=== PATIENT | female | born 1985 | race Caucasian/White ===

== ENCOUNTER 2024-10-12 09:42 | Emergency (ER) | payer OTHER, SELFPAY ==
--- NOTE | ~2024-10-12 | CT_ITS ---
EXAMINATION: CT HEAD WITHOUT CONTRAST CLINICAL INFORMATION: tinnitus, left eye pain and tinge to vision COMPARISON: None available. TECHNIQUE: Contiguous axial imaging was performed from the skull base to vertex without intravenous administration of contrast. This CT examination was performed using dose optimization techniques as appropriate, variously including the following: *Automated exposure control *Adjustment of mA and/or kV according to patient size (this includes techniques or standardized protocols for targeted exams where dose is matched to indication/reason for exam; i.e. extremities or head) *Use of iterative reconstruction technique DLP: 680 mGy-cm FINDINGS: No acute intracranial hemorrhage, mass effect, midline shift, hydrocephalus or herniation. Olson-white matter differentiation is normal. Posterior cranial fossa contents demonstrated no gross mass effect or hemorrhage. Sellar/suprasellar region demonstrated the CSF prominence suggesting diaphragmatic sella insufficiency. Craniocervical junction is intact and normal. No masses or hematomas in the intraconal or extraconal compartments of the orbits The eyeballs are intact and normal. The extraocular muscles are normal in morphology. Polypoid mucosal thickening, maxillary sinuses venous sinus and mucosal thickening ethmoid air cells. Tympanic cavities and mastoid air cells are aerated. CT/CT head/brain wo IV con IMPRESSION: No acute intracranial hemorrhage or acute brain abnormality by CT. Polypoid paranasal sinus disease. Electronically signed by: Nasim Verduzco MD 10/12/2024 01:59 PM EDT
[2024-10-12 09:55] VITALS: BP 161/110; PULSE 95; RESP 19; TEMP 36.6; O2SAT 98; BMI 36.0
--- NOTE | 2024-10-12 10:02 | PC.NURSE ---
case discussed Nichelle Pedersen and basic labs recommended and no stroke protocol
[2024-10-12 10:38] LABS: MANUAL DIFF FLAG NO
[2024-10-12 10:40] LABS: Basophils Absolute Auto 0.1 X10*3/uL (0.0-0.2); Basophils Percent Auto 0.7 % (0-2); Eosinophils Absolute Auto 0.2 X10*3/uL (0.0-0.4); Eosinophils Percent Auto 2.9 % (0-4); Hematocrit 42.1 % (37.0-47.0); Hemoglobin 14.4 g/dl (12.0-16.0); Imm Gran Abs Auto 0.02 X10*3/uL (0.00-0.03); Imm Gran Pct Auto 0.3 % (0.0-0.4); Lymphocytes Absolute Auto 2.5 X10*3/uL (1.2-4.9); Lymphocytes Percent Auto 35.8 % (20-40); Mean Corpuscular HGB Conc 34.2 g/dl (31.0-35.0); Mean Corpuscular Hemoglobin 32.7 pg (27.0-33.0); Mean Corpuscular Volume 95.7 fL (80.0-98.0); Mean Platelet Volume 9.3 fL (9.4-12.3); Monocytes Absolute Auto 0.6 X10*3/uL (0.1-1.2); Monocytes Percent Auto 9.1 % (2-11); Neutrophils Absolute Auto 3.6 x10*3/uL (2.0-8.3); Neutrophils Percent Auto 51.2 % (45-73); Platelet Count 283 X10*3/uL (160-400); Red Cell Distribution Width 12.4 % (11.0-16.0)
[2024-10-12 10:58] LABS: Anion Gap 14 (12-20); Blood Urea Nitrogen 12 mg/dL (9-16); Carbon Dioxide 22 mmol/L (22-29); Chloride 108 mmol/L (96-108); Estimated Glomerular Filt Rate > 60; Glucose Random 93 mg/dL (60-115); Potassium 4.3 mmol/L (3.3-5.1); Sodium 140 mmol/L (135-145)
[2024-10-12 11:40] LABS: HCG Quantitative < 2 mIU/mL
--- NOTE | 2024-10-12 13:25 | ED.EYEPROB ---
HPI - Eye Problem General Chief complaint: Eye Problems Stated complaint: eye issues ringing in l ear Time Seen by Provider: 10/12/24 13:02 Source: patient Mode of arrival: ambulatory Limitations: no limitations History of Present Illness HPI Narrative: 39 year old female presents emergency department with multiple complaints. She states she has had recurrent tinge to her left eye after looking at her fundi before she was the bed. She states that similar thing happened last night and that she had ringing in her left ear and pain behind her left eye. She denies any history of headaches or migraine she has not taken anything for the pain and states she was unable to sleep all last night he came in if you for evaluation she denies any allergies states she does not take any medications in his otherwise healthy. chief complaint: eye pain and vision change Related Data Allergies Allergy/AdvReac Type Severity Reaction Status Date / Time No Known Allergies Allergy Verified 10/12/24 09:58 Review of Systems Review of Systems: Review of systems: General: Patient denies any fever chills recent illness or falls Musculoskeletal: Denies back pain or body aches or other injuries HEENT: ringing to left ear headache, denies runny nose, ear pain Respiratory: denies shortness of breath, cough Cardiovascular: no chest pain or palpitations : denies dysuria, frequency Abdomen: no nausea vomiting denies abdominal pain Extremities: no swelling, no pain Skin: no diaphoresis Yes all other systems are reviewed and are negative [facility] Social History Social History Advance Directives: No Advance Directives Information Provided: Yes Do you have a plan to hurt others: No Plan Physical Exam Vital Signs: Vital Signs: Last Vital Signs Temp 98 F 10/12/24 09:55 Pulse 95 10/12/24 09:55 Resp 19 10/12/24 09:55 BP 161/110 H 10/12/24 09:55 Pulse Ox 98 10/12/24 09:55 O2 Del Method Room Air 10/12/24 09:55 BMI result Body Mass Index 36.0 Neurological exam: CN II- XII tested. Patient is alert and oriented to person place and time. Patient has no dysphagia or dysarthia, denies good vision in all four vision beaver no nystagmus on exam, good strength to upper and lower extremities with normal reflexes to brachioradialis, wrist, patella and achilles. Negative romberg, good finger to nose and heel to esposito. General: Well-appearing well-nourished in no signs of distress HEENT: Normocephalic atraumatic Neck: No signs of JVD, no masses no tenderness or lymphadenopathy Cardiovascular: Regular rate and rhythm Respiratory: Clear to auscultation bilaterally Abdomen: Soft nontender no masses Extremities: Normal pedal pulses no signs of edema Skin: Dry warm no rashes Back: No tenderness full ROM Course Course Course Narrative: Patient is feeling much better reading is much better still has some pain. Patient is happy with the plan to go home CT is negative labs are all unremarkable she is happy with the plan to go home at this time. Medications Administered Generic Name Dose Route Start Last Admin Trade Name Freq PRN Reason Stop Dose Admin Sodium Chloride 1,000 mls @ 999 mls/hr 10/12/24 13:30 10/12/24 14:06 Ns IV 10/12/24 14:30 999 mls/hr .[id number] MAURICE Administration Discontinued Medications Generic Name Dose Route Start Last Admin Trade Name Freq PRN Reason Stop Dose Admin Acetaminophen 650 mg 10/12/24 13:24 10/12/24 14:06 Acetaminophen 325 Mg Tablet PO 10/12/24 13:25 650 mg ONCE ONE Administration Diphenhydramine HCl 25 mg 10/12/24 13:24 10/12/24 14:10 Diphenhydramine Hcl 50 Mg/Ml Vial IVPUSH 10/12/24 13:25 25 mg ONCE ONE Administration Ketorolac Tromethamine 15 mg 10/12/24 13:24 10/12/24 14:08 Ketorolac Tromethamine 15 Mg/Ml Vial IVPUSH 10/12/24 13:25 15 mg ONCE ONE Administration Metoclopramide HCl 10 mg 10/12/24 13:24 10/12/24 14:11 Metoclopramide Hcl 10 Mg/2 Ml Vial IVPUSH 10/12/24 13:25 10 mg ONCE ONE Administration Medical Decision Making Medical Decision Making MDM Narrative: Patient denies any recent infection or any other cause that could lead to her ear complaints she does not have any signs of any distress with normal vitals she has not even tried [id number] medications like Tylenol or ibuprofen for this and this has been a recurrent problem symptoms never lasted this long this sounds more like an ocular migraine I will give the patient Toradol Tylenol Reglan and Benadryl. I will send the patient over for a CT scan to make sure there is no mass that could cause both these symptoms but this is not sound like a stroke her neuro exam is otherwise unremarkable Differential Diagnosis Differential Diagnoses: The differential diagnosis associated with the presentation includes Headache dehydration electrolyte abnormality reading the ear tinnitus Admission/Observation Consideration of admission/observation: Escalation of care including admission/observation considered Consult Healthcare Provider Management of the patient was discussed with: Hospitalist Lab Data [facility] Lab Attestation statement: I reviewed the patient's lab results. 10/12/24 10:34 10/12/24 10:34 Labs: Lab Results 10/12/24 Range/Units 10:34 WBC 7.0 (4.8-10.8) X10*3/uL RBC 4.40 (4.20-5.50) X10*6/uL Hgb 14.4 (12.0-16.0) g/dl Hct 42.1 (37.0-47.0) % MCV 95.7 (80.0-98.0) fL MCH 32.7 (27.0-33.0) pg MCHC 34.2 (31.0-35.0) g/dl RDW 12.4 (11.0-16.0) % Plt Count 283 (160-400) X10*3/uL MPV 9.3 L (9.4-12.3) fL Immature Gran % (Auto) 0.3 (0.0-0.4) % Neut % (Auto) 51.2 (45-73) % Lymph % (Auto) 35.8 (20-40) % [place] % (Auto) 9.1 (2-11) % Eos % (Auto) 2.9 (0-4) % Baso % (Auto) 0.7 (0-2) % Lymph # (Auto) 2.5 (1.2-4.9) X10*3/uL [place] # (Auto) 0.6 (0.1-1.2) X10*3/uL Eos # (Auto) 0.2 (0.0-0.4) X10*3/uL Baso # (Auto) 0.1 (0.0-0.2) X10*3/uL Abs Immat Gran (auto) 0.02 (0.00-0.03) X10*3/uL Absolute Neuts (auto) 3.6 (2.0-8.3) x10*3/uL Absolute Nucleated RBC 0.000 (0.0-0.012) X10*3/uL Nucleated RBC % (auto) 0.0 (0.0-0.2) /100WBC Sodium 140 (135-145) mmol/L Potassium 4.3 (3.3-5.1) mmol/L Chloride 108 (96-108) mmol/L Carbon Dioxide 22 (22-29) mmol/L Anion Gap 14 (12-20) BUN 12 (9-16) mg/dL Creatinine 0.81 (0.5-1.4) mg/dL Estim Creat Clear Calc 117.0 Estimated GFR > 60 Random Glucose 93 (60-115) mg/dL Calcium 10.0 (8.4-10.2) mg/dL Beta HCG, Quant < 2 mIU/mL Independent Interpretation I performed an independent interpretation of an: EKG and CT Scan Radiology Impression Discussion of test interpretation with radiology: I have reviewed the radiologist's reading. External Record Review External record reviewed: Inpatient record Discharge Plan Discharge Clinical Impression: Headache, Tinnitus, Vision defect, color Patient Disposition: Home, Self-Care Instructions: Acute Headache (DC), Tinnitus (ED) Additional Instructions: You were seen today in the emergency department for change your left eye vision. You were also seen for ringing ears and headache behind her eye. You underwent a CT scan as well as blood work which were all unremarkable. You were given Reglan Toradol and Benadryl. If you have any other concerns please call follow up with her doctor Referrals: Deandre Almaraz [Physician] - (You seen today in the emergency department for left eye vision change. Please call follow up with a specialist.) [place] Chu [Physician] - (Please call follow up for the ringing in your ears. ) Stand Alone Forms: Work/School Release Print Language: Surinamese
[2024-10-12] MEDS: Acetaminophen 325 MG TABLET 650 MG PO (14:06)
[2024-10-12] MEDS: 0.9 % Sodium Chloride 1,000 ML 999 ML IV (14:06)
[2024-10-12] MEDS: Ketorolac Tromethamine 15 MG/ML VIAL IVPUSH (14:08)
[2024-10-12] MEDS: diphenhydrAMINE HCL 50 MG/ML VIAL 25 MG IVPUSH (14:10)
[2024-10-12] MEDS: Metoclopramide HCl 10 MG/2 ML VIAL IVPUSH (14:11)
[2024-10-12 15:34] VITALS: BP 161/110; PULSE 95; RESP 19; TEMP 36.6; O2SAT 98
== END 2024-10-12 15:34 | disposition home or self-care (01) ==
PROVIDERS: Physician Assistant Medical; Emergency Provider Student in an Organized Health Care Education/Training Program
DX: R51.9 Headache, unspecified (principal); H57.12 Ocular pain, left eye; H93.12 Tinnitus, left ear; H54.7 Unspecified visual loss
CPT/HCPCS: 36415; 70450; 80048; 84702; 85025; 96374; 96375; 99283; J1200; J1885; J2765

== ENCOUNTER → 2024-10-12 13:24 | Outpatient (BNV) | payer OTHER, SELFPAY | PROVIDERS: Emergency Provider Student in an Organized Health Care Education/Training Program; Visit Provider Radiology Diagnostic Radiology | DX: J33.8 Other polyp of sinus (principal) | CPT/HCPCS: 70450 ==

== ENCOUNTER 2025-04-14 10:55 | Outpatient (AMB) | payer OTHER, SELFPAY ==
--- NOTE | 2025-04-14 11:02 | MHC.PC.OV ---
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 Allergies No Known Allergies Allergy (Verified 04/14/25 11:05) Medication List - Last Reviewed 04/14/25 by Patsy Angeles CMA bupropion HCl XL mg PO DAILY clobetasol 0.05% topical dextroamphetamine-amphetamine 10 mg PO dextroamphetamine-amphetamine 10 mg ER PO QAM dextroamphetamine-amphetamine 30 mg ER PO DAILY fluoxetine mg PO DAILY lorazepam mg PO PRN propranolol mg PO 3XD PRN Tobacco use date assessed: 04/14/25 Dental Screening Dental Screen Date: 04/14/25 Did you have a dental visit in the last 12 months?: Yes Did you have a dental problem in the last 6 months where you did not have access to dental care?: No Was dental information given to patient?: Patient has dentist HPI HPI Comments History of Present Illness Details 39 y/o F with ADHD, PRINCESS, Obesity, HTN, Family hx of CAD, chronic back pain, hx of R ankle sprains and 5th metatarsal fracture, scalp psoriasis, Ct scan 10/2024 diaphragmatic sella insufficiency s/p L5-S1 fusion, s/p lasix eye surgery Social: to [place] [facility]: Dad 69 hx of cardiac stenting/[place]; Paternal Grandparents age 65 of [place]. Mom alive and well. 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 - Obesity with weight loss efforts ongoing, including dietary amendments and exercise resulting in an 8-pound loss in six weeks. Interested in bariatric referral. Placed today - Family history of severe heart disease with the father, paternal grandparents & pAUnt (29) succumbing to cardiac conditions. Offered and declined Cards referral at this time. Will check labs. - HTN uncontrolled; took a med for short time from the ED; stopped taking. Active w/ Optho. Exam 10/2024. Reports retinal issue in R eye. - Palpable left leg mass noted over the past few months,started after travel to [place], has gotten bigger. Has not had this looked at. - Chronic back pain persists post L5-S1 fusion; decreased activity levels attributed to previous weight gain. recurrent sprain R ankle. Would like PT for this. - Managing depressive, anxiety, and ADHD symptoms with prescribed psychiatric medications; managed by outside provider. - Scalp psoriasis - has rx for clobetasol but does not use often. 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 no longer having headaches. Review of Systems - Constitutional: Reports recent weight loss of 8 pounds in past six weeks. - Cardiovascular: Reports no ongoing chest pain but expresses concern about family history of heart disease. - Respiratory: Denies any respiratory symptoms. - Gastrointestinal: Denies any significant GI symptoms. - Musculoskeletal: Reports chronic back pain and past ankle injuries. Reports a new mass in the left leg. - Integumentary: Reports scalp dermatitis with spreading symptoms. - Neurological: Denies current headaches, past temporal headaches reported. - Psychiatric: Reports ongoing treatment for depression, anxiety, ADHD, and performance anxiety. - Others: Denies any new or acute symptoms outside those detailed. Physical Exam General: Well developed, well nourished, in no acute distress. Appears stated age. Head: Normocephalic, atraumatic. Scalp psoriasis noted Eyes: Pupils are equal, round and reactive to light and accommodation. Conjunctivae are clear. Lungs: Clear to auscultation bilaterally. No rales, rhonchi or wheeze noted. Good air flow in all beaver. Heart: Regular rate and rhythm. No murmurs, click, rubs or gallops are noted. Musculoskeletal: Joints are nontender, without swelling, redness, or effusions. Pulses: Peripheral pulses are equal and palpable bilaterally. Extremities: No clubbing, cyanosis nor edema is noted. Palpable cord like area noted to posterior L calf. Mildly tender to touch, not red. Psych: Mood and affect appropriate. Diagnostic results Pending Results Pending Discussion Notes I discussed various health concerns with the patient, emphasizing the importance of managing obesity through sustained dietary and physical activity improvements. Given the significant family history of cardiovascular disease, we talked about the utility of cardiology referral and genetic markers to better assess her risk. I highlighted the importance of managing her psychiatric conditions with current medications, confirming her treatment compliance. I encouraged the patient to initiate the dermatology management plan involving clobetasol and fluocinolone oil, providing clarity on application strategies for optimal results. Agreement on prioritizing an ultrasound for the left leg to assess the area found and excluded possible thrombosis. Arranged for physical therapy referrals to reevaluate and manage her chronic back pain and left ankle instability. Set expectations for regular follow-ups for hypertension management to prevent possible renal complications. Addressed the need for ongoing eye care to monitor potential retinal changes given the high blood pressure history. I also outlined important anticipatory guidance for future woman?s health screenings and continued execution of her mental health strategy. Patient was given time to ask questions. All questions were answered to their satisfaction. Assessment and Plan 1. Obesity - Weight management plan initiated. - Dietary and exercise guidance provided. [facility] bariatric referral 2. Hypertension - Clonidine 0.1mg for hypertension initiated. We will titrate to effect - Monitor blood pressure at home.Bring cuff to callobrate at next visit 3. Scalp psoriasis - Fluocinolone oil at night, clobetasol foam during day. - Regular use stressed for control. consider derm referral PRN 4. Family Cardiac Risk - Consider future cardiology referral. - Focus on cardiac risk from family history. 5. Left Leg Mass - Immediate ultrasound scheduled DVT R/o - Assess for thrombosis. 6. Chronic Back Pain - Physical therapy for core stability. - Mobility improvement focus. 7. Depression/Anxiety - Continue psychotropic medications. - Monitor with current psychiatric provider. 8. Ankle Instability, R - Physical therapy for ankle stability. 9. Genetic Cardiac Risk - Potential marker evaluations discussed. Patient Instructions - Follow the weight management plan for dietary adjustments and exercise habits. - Monitor blood pressure daily; keep a record for next visit. - Apply scalp treatment as directed; regular usage is critical. - Attend scheduled ultrasound for leg mass. - Engage in physical therapy as soon as scheduled. - Adhere to current psychiatric medication routine. - Return for scheduled follow-up in four weeks. Consent Patient was informed and verbally consented to the use of an ambient scribe for clinic note documentation during this visit. Total time spent caring for the patient today was 60 minutes. This includes time spent before the visit reviewing the chart, time spent during the visit, and time spent after the visit on documentation, reviewing laboratory results, diagnostic imaging, medications, performing a medically necessary evaluation, counseling on diagnoses, care coordination, ordering appropriate tests, ordering appropriate medications, review of tests performed by other providers, reporting test results with the patient, communication with other healthcare providers. [facility] Surgical History (Updated 04/14/25 @ 11:28 by Patsy Angeles CMA) History of back surgery Family History (Updated 04/14/25 @ 11:28 by Patsy Angeles CMA) Father HTN (hypertension) High cholesterol Cardiovascular disease Prostate cancer Paternal Grandmother HTN (hypertension) High cholesterol Cardiovascular disease Paternal Grandfather HTN (hypertension) High cholesterol Cardiovascular disease Other FH: mental illness History of back surgery Substance abuse Social History Housing: House Alcohol intake: never Patient Tobacco Use Status: Former Tobacco user Years Smoked: once as a teenager e-Cigarette/Vaping Use: Never Used Second Hand Smoke Exposure: Yes service: No Current occupational status: employed 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 1. Little interest or pleasure in doing things: not at all 2. Feeling down, depressed, or hopeless: not at all 3. Trouble falling or staying asleep, or sleeping too much: several days 4. Feeling tired or having little energy: several days 5. Poor appetite or overeating: several days 6. Feeling bad about yourself - or that you are a failure or have let yourself or your family down: not at all 7. Trouble concentrating on things, such as reading the newspaper or watching television: several days 8. Moving or speaking so slowly that other people could have noticed. Or the opposite - being so fidgety or restless that you have been moving around a lot more than usual: not at all 9. Thoughts that you would be better off or of hurting yourself in some way: not at all Total score: 4 Depression Screening Interpretation: Negative Depression Screening Done: Yes 60790 - PHQ-9 Billing: Yes Source: Developed by Drs. Kyaw Bowser, Rain Emmanuel, Ralph Simon and colleagues, with an educational cuco from [employer]. Thrive Questionnaire Date Thrive assessed: 04/07/25 I am a: Patient What is your living situation today?: I have a steady place to live Within the past 12 months, did the food you bought not last and you didn't have the money to get more?: Never true Within the past 12 months, did you worry whether your food would run out before you got money to buy more?: Never true Do you have trouble paying for medicines?: No Do you have trouble getting transportation to medical appointments?: No Do you have trouble paying your heating and electricity bill?: No Do you have trouble taking care of your child, family member or friend?: No Do you have trouble with day-to-day activities such as bathing, preparing meals, shopping, managing finances, etc.?: No Are you currently unemployed and looking for a job?: No Are you interested in more education?: Yes Please select the resources that you would like help with: None Currently or been in a relationship where the following occur: No concerns reported THRIVE Score: 0 AUDIT C Alcohol Use Questionnaire (AUDIT-C) 1. How often do you have a drink containing alcohol?: 2-3 times a week 2. How many drinks containing alcohol do you have on a typical day when you are drinking?: 1 or 2 3. How often do you have six or more drinks on one occasion?: Less than monthly Total Score: 4 Score Reviewed/Action Taken: Yes PRINCESS-7 AMB Questionnaire PRINCESS-7 Date PRINCESS - 7 assessed: 04/14/25 Feeling nervous, anxious, or on edge: 3 = Nearly every day Not being able to stop or control worryin = More than half the days Worrying too much about different things: 2 = More than half the days Trouble relaxin = More than half the days Being so restless that it is hard to sit still: 1 = Several days Becoming easily annoyed or irritable: 0 = Not at all Feeling afraid as if something awful might happen: 1 = Several days Total PRINCESS-7 score (0-4 normal; 5-9 mild; 10-14 moderate; 15-21 severe): 11 Source: Developed by Drs. Kyaw Bowser, Ralph Morales and colleagues, with an educational cuco from [employer]. RPINCESS-7 Assessment Billing PRINCESS-7 Assessment Tool: PRINCESS-7 Assessment 77570 Physical exam (Primary Care) Vital Signs: Last Vital Signs Temp 98.2 F 04/14/25 11:06 Pulse 82 04/14/25 11:06 Resp 14 04/14/25 11:06 BP 178/113 H 04/14/25 11:06 Pulse Ox 99 04/14/25 11:06 Oxygen Delivery Method Room Air 04/14/25 11:06 BMI result Body Mass Index 40.6 BMI Assessment/Plan discussion: High BMI High, discussed plan: lifestyle Tobacco/Smoking Status: Tobacco use Status Tobacco use date assessed 04/14/25 04/14/25 11:08 Patient Tobacco Use Status Former Tobacco user 04/14/25 11:08 e-Cigarette/Vaping Use Never Used 04/14/25 11:08 PHQ-9: PHQ-9 Score PHQ-9: Total score 4 04/14/25 11:08 Depression Screening Interpretation: Negative Thrive Assessment: Date of Thrive Assessment Date Thrive assessed 04/07/25 04/14/25 11:08 Currently or been in a relationship where the following occur: No concerns reported Coding Level of Care Code New Pt Level 5 (50662) Complex EM visit Add On G2211 Diagnoses Encounter to establish care Z76.89 PRINCESS (generalized anxiety disorder) F41.1 Attention deficit hyperactivity disorder (ADHD), predominantly inattentive type F90.0 Attention deficit-hyperactivity disorder type: predominantly inattentive BMI 40.0-44.9, adult Z68.41 Chronic bilateral low back pain without sciatica M54.50; G89.29 Back pain laterality: bilateral Sciatica presence: without sciatica Family history of early CAD Z82.49 Primary hypertension I10 Hypertension type: primary hypertension Localized swelling, mass and lump, left lower limb R22.42 Scalp psoriasis L40.9 Cervical cancer screening Z12.4 Additional Codes PHQ-9 - 81472 - PHQ-9 Billing: Yes ([id number]) PRINCESS-7 Assessment Billing - PRINCESS-7 Assessment Tool: PRINCESS-7 Assessment 21597 ([id number]) Assessment & Plan Assessment & Plan (1) Encounter to establish care: Code(s): Z76.89 - Persons encountering health services in other specified circumstances (2) PRINCESS (generalized anxiety disorder): Code(s): F41.1 - Generalized anxiety disorder Category: Medical (3) ADHD: Code(s): F90.9 - Attention-deficit hyperactivity disorder, unspecified type Category: Medical Qualifiers: Attention deficit-hyperactivity disorder type: predominantly inattentive Qualified Code(s): F90.0 - Attention-deficit hyperactivity disorder, predominantly inattentive type (4) BMI 40.0-44.9, adult: Code(s): Z68.41 - Body mass index [BMI] 40.0-44.9, adult Category: Medical (5) Chronic low back pain: Code(s): M54.50 - Low back pain, unspecified; G89.29 - Other chronic pain Category: Medical Qualifiers: Back pain laterality: bilateral Sciatica presence: without sciatica Qualified Code(s): M54.50 - Low back pain, unspecified; G89.29 - Other chronic pain (6) Family history of early CAD: Comment: dad's side Code(s): Z82.49 - Family history of ischemic heart disease and other diseases of the circulatory system Category: Medical (7) HTN (hypertension): Code(s): I10 - Essential (primary) hypertension Category: Medical Qualifiers: Hypertension type: primary hypertension Qualified Code(s): I10 - Essential (primary) hypertension (8) Localized swelling, mass and lump, left lower limb: Code(s): R22.42 - Localized swelling, mass and lump, left lower limb Category: Medical (9) Scalp psoriasis: Code(s): L40.9 - Psoriasis, unspecified Category: Medical (10) Cervical cancer screening: Code(s): Z12.4 - Encounter for screening for malignant neoplasm of cervix Category: Medical Plan . Orders: Orders Hemoglobin A1c Today I10 - Essential (primary) hypertension Microalbumin, Random (w Creat) Today I10 - Essential (primary) hypertension Vitamin D 25-OH Total Today I10 - Essential (primary) hypertension PT Evaluation and Treatment Today G89.29 - Other chronic pain, M54.50 - Low back pain, unspecified, S93.401A - Sprain of unspecified ligament of right ankle, initial encounter Apolipoprotein A1 Today Z82.49 - Family history of ischemic heart disease and other diseases of the circulatory system Apolipoprotein B Today Z82.49 - Family history of ischemic heart disease and other diseases of the circulatory system CRP High Sensitivity Today Z82.49 - Family history of ischemic heart disease and other diseases of the circulatory system Complete Blood Count no Diff Today I10 - Essential (primary) hypertension Comprehensive Met. Panel Today I10 - Essential (primary) hypertension Lipid Panel Today I10 - Essential (primary) hypertension TSH reflex Free T4 Today I10 - Essential (primary) hypertension Vitamin B12 and Folate Today I10 - Essential (primary) hypertension US venous duplex LE LT Today R22.42 - Localized swelling, mass and lump, left lower limb Referrals ANALYTICS ARCHITECT Referral Z12.4 - Encounter for screening for malignant neoplasm of cervix Ophthalmology Referral I10 - Essential (primary) hypertension Medical Weight Management Referral Z68.41 - Body mass index [BMI] 40.0-44.9, adult Medications: New fluocinolone and shower cap 0.01 % apply a thin film onto wet scalp and massage in, cover with shower cap, leave in overnight or a minimum of 4 hours before washing off with shampoo 1 appl topical BEDTIME 118.28 mL 4RF clobetasol 0.05% 1 g topical DAILY 100 grams 8RF clonidine HCl 0.1 mg PO BEDTIME 30 tabs 1RF Discontinued guanfacine Discontinued Reason: Patient no longer taking PO DAILY Patient Instructions: Walk-In Care (Urgent Care): We Make it Easy Walk-in for urgent medical issues such as: ? Seasonal Allergies ? Insect Bites ? Cough ? Diarrhea ? Acute Asthma Attacks ? Back, Knee or Joint Pain ? Ear Infection ? Fever without a Rash ? Headaches ? Nausea ? [place] [facility], Rash or Skin Irritation ? Sore Throat ? Sports Physicals ? Vomiting Most insurances are accepted. Patients do not need to be part of the [facility] to seek care at the walk-in clinic. Locations [facility] , [place] [address] ? [phone] [facility] Walk-In Care in [place] provides services to ages 18 and over. Open Saturday-Saturday: 7 a.m. to 5 p.m. and Saturday: 9 a.m. to 3 p.m.* *Hours may vary due to staffing availability. To confirm Walk-In Care hours in [place], please call [phone]. [address] [place] [address], [place] [address] ? [phone] [facility]In [facility] in [place] provides services to ages 12 and over. Open Saturday-Saturday: 8 a.m. to 5 p.m. Hours may vary due to staffing availability. To confirm Walk-In Care hours in [place], please call [phone]. LABORATORY SERVICES: [facility] Lab ? Primary Location [address] [place] [address] Saturday through Saturday 6:00 AM ? 5:00 PM Saturday 7:00 AM ? 11:00 AM* [phone] The [facility] Lab is centrally located near the front entrance of the [facility] for easy outpatient access. Convenient parking is provided for outpatients. *Hours may vary due to staffing availability. To confirm Laboratory hours for any location, please call [phone]. Offsite Location For your convenience, we offer offsite laboratory draw stations at the following locations: [address] [place] [address] ? [address], [address] Saturday through Saturday 7:30 AM ? 1:00 PM* [phone] *Hours may vary due to staffing availability. To confirm Laboratory hours for any location, please call [phone]. [place] ? [address] Saturday through Saturday 6:00 AM ? 3:30 PM* Saturday 6:30 AM ? 3 PM* [phone] *Hours may vary due to staffing availability. To confirm Laboratory hours for any location, please call [phone] [place] [address] Saturday through Saturday 7:30 AM ? 4:00 PM* [phone] *Hours may vary due to staffing availability. To confirm Laboratory hours for any location, please call [phone] [place] [address] Saturday through 9:00 AM ? 4:00 PM* *Hours may vary due to staffing availability. To confirm Laboratory hours for any location, please call [phone]. Appointments are not necessary. Walk-ins are welcome. Like all the departments throughout the [facility], our Lab undergoes frequent reviews to ensure the quality and accuracy of test results, and our staff takes special pride in its status as a nationally accredited facility. Patient Portal: [facility] ONE PATIENT. ONE RECORD. BETTER CARE. [facility] has a fully integrated, cutting-edge mobile electronic health information system that has revolutionized the way we care for our patients and manage our organization. This system improves communication and coordination enabling us to provide safe, higher-quality care, and an overall positive experience for staff and patients. Our first priority, as always, is to deliver the highest quality care possible. The system is running in the background supporting that priority. This portal is for all [facility] services and practices. If you are experiencing any technical difficulties with enrolling or logging into the Patient Portal please complete the [facility] Patient Portal Technical Support Form. [facility] now offers a new secure on-line interactive tool for patients to review their health information ? ?Patient Portal. This interactive web portal will enable patients and their families to take an active role in their care by providing easy, secure access to their health information via the internet. The Patient Portal provides patients with instant access to their health information, including laboratory results, medications, allergies, demographic information, visit history, and more. In addition to managing their own care, parents and health care proxies with authorized consent will appreciate the ability to access the records of those individuals for whom they provide care. Please note: if you wish to gain access (Proxy) to another patient?s portal, you will be required to come to the Medical Records Department in person at [facility]. Both the patient giving proxy access and the proxy will need to provide photo identification and complete the appropriate authorization. The Patient Portal also allows track their appointments online. The [facility] Patient Portal also saves patients time by allowing them to submit updates to their demographic and contact information prior to their visits. Portal email notifications will also alert patients to any new activity on their portal, such as test results and new appointments. In order to initially enroll in the [facility] Patient Portal, you will need to enter some required information including the following: your [facility] Medical Record number your personal home email address name date of Please note: In order to enroll in the [facility] Patient Portal, we need to have your email address on file in your electronic medical record. ?The email address needs to be specific for one person (yourself) in order for your Portal enrollment to be successful. ?You can update your email address in person with our Registration staff when you are registering for a hospital visit. ?Otherwise, you will need to come to the Health Information Management (Medical Records) Department at [facility]. ?We are open from Saturday ? Saturday from 7:30 a.m. ? 4:30 p.m. ?You will be required to present a photo id. Once you have successfully enrolled in the Patient Portal, you will receive a one-time user id and password for the Portal, sent to your email address. ?This will allow you to log into the Patient Portal within 99 hrs and reset your own logon id and password, and define personal security questions. ?Once your permanent login and password have been set, you can log into the [facility] Patient Portal at any time via the blue button above or from the Portal Logon button on any page of the [facility] website. [facility] and [facility] encourage all of our patients to enroll in Patient Portal as it presents a valuable opportunity for patients and their families to actively participate in their care and stay healthy Welcome to [facility]. ?We look forward to working with you.
[2025-04-14 11:06] VITALS: BP 178/113; PULSE 82; RESP 14; TEMP 36.8; O2SAT 99; BMI 40.6
== END 2025-04-14 11:49 | disposition home or self-care (01) ==
LOC: HO.HMCFM 10:56
PROVIDERS: PCP Nurse Practitioner Family; Visit Provider Nurse Practitioner Family
DX: Z76.89 Persons encountering health services in other specified circumstances (principal); F41.1 Generalized anxiety disorder; F90.0 Attention-deficit hyperactivity disorder, predominantly inattentive type; Z68.41 Body mass index [BMI] 40.0-44.9, adult; M54.50 Low back pain, unspecified; G89.29 Other chronic pain; Z82.49 Family history of ischemic heart disease and other diseases of the circulatory system; I10 Essential (primary) hypertension; R22.42 Localized swelling, mass and lump, left lower limb; L40.9 Psoriasis, unspecified; Z12.4 Encounter for screening for malignant neoplasm of cervix

== ENCOUNTER 2025-04-14 10:55 | Outpatient (REF) | payer OTHER, SELFPAY ==
[2025-04-14 14:37] LABS: Hematocrit 42.3 % (37.0-47.0); Hemoglobin 13.9 g/dl (12.0-16.0); Mean Corpuscular HGB Conc 32.9 g/dl (31.0-35.0); Mean Corpuscular Hemoglobin 31.7 pg (27.0-33.0); Mean Corpuscular Volume 96.4 fL (80.0-98.0); NRBC Abs Auto 0.000 X10*3/uL (0.0-0.012); NRBC Pct Auto 0.0 /100WBC (0.0-0.2); Platelet Count 315 X10*3/uL (160-400); Red Blood Count 4.39 X10*6/uL (4.20-5.50); White Blood Count 5.6 X10*3/uL (4.8-10.8)
[2025-04-14 15:06] LABS: Total Hemoglobin (HGBA1C) 3683.8672 umol/L
[2025-04-14 15:19] LABS: Alanine Aminotransferase 38 U/L (0-31); Albumin Level 4.8 g/dL (3.5-5.0); Alkaline Phosphatase 70 U/L (39-117); Anion Gap 13 (12-20); Aspartate Amino Transferase 39 U/L (5-31); Blood Urea Nitrogen 15 mg/dL (9-16); Calcium 9.6 mg/dL (8.4-10.2); Carbon Dioxide 25 mmol/L (22-29); Chloride 102 mmol/L (96-108); Cholesterol 198 mg/dL (<200); Estimated Glomerular Filt Rate > 60; HDL Cholesterol 45 mg/dL (>40); Potassium 4.1 mmol/L (3.3-5.1); Sodium 136 mmol/L (135-145); Total Protein 7.3 g/dL (6.5-8.0); Triglycerides 286 mg/dL (<150)
[2025-04-14 15:31] LABS: Microalbum/Creatinine Ratio Ur 7.3 ug/mg cr (<30)
[2025-04-14 15:41] LABS: Folate 7.0 ng/mL (> or = 4.0); Vitamin B12 380 pg/mL (200-900)
== END 2025-04-14 10:56 | disposition home or self-care (01) ==
LOC: HO.WFDLDS 10:55
PROVIDERS: PCP Nurse Practitioner Family; Visit Provider Nurse Practitioner Family
DX: Z76.89 Persons encountering health services in other specified circumstances (principal); Z12.4 Encounter for screening for malignant neoplasm of cervix; M54.50 Low back pain, unspecified; L40.9 Psoriasis, unspecified; R22.42 Localized swelling, mass and lump, left lower limb; I10 Essential (primary) hypertension; F41.1 Generalized anxiety disorder; F90.0 Attention-deficit hyperactivity disorder, predominantly inattentive type; G89.29 Other chronic pain; Z82.49 Family history of ischemic heart disease and other diseases of the circulatory system
CPT/HCPCS: 36415; 80053; 80061; 82043; 82172; 82306; 82570; 82607; 82746; 83036; 84443; 85027; 86141; 96127

== ENCOUNTER 2025-04-14 13:21 | Outpatient (REF) | payer OTHER, SELFPAY ==
--- NOTE | ~2025-04-14 | US_ITS ---
EXAMINATION: US TRIPLEX LOWER EXTREMITY, LEFT CLINICAL INFORMATION: Pain. Lump, left lower extremity COMPARISON: None available. TECHNIQUE: Color-flow triplex imaging with spectral analysis and compression Doppler were performed on the left lower extremity. FINDINGS: Respiratory variation, normal compression and augmented flow are demonstrated in the interrogated left common femoral vein, superficial femoral vein, profunda femoral vein, popliteal vein and midcalf peroneal and posterior tibial venous segments.. There is no Webster's cyst. There is a 9 mm ovoid shaped hypoechoic solid lesion beneath the spleen in the mid calf region without flow on color Doppler interrogation US/US venous duplex LE LT IMPRESSION: No acute deep venous thrombosis interrogated veins, left lower extremity. Negative for DVT. 9 mm ovoid shaped solid lesion in the soft tissues of the mid calf.. Electronically signed by: Nasim Verduzco MD 04/14/2025 02:56 PM EDT
== END 2025-04-14 13:22 | disposition home or self-care (01) ==
LOC: HO.US 13:21
PROVIDERS: Visit Provider Nurse Practitioner Family
DX: R22.42 Localized swelling, mass and lump, left lower limb (principal)
CPT/HCPCS: 93971

== ENCOUNTER → 2025-04-14 13:22 | Outpatient (BNV) | payer OTHER, SELFPAY | PROVIDERS: Visit Provider Radiology Diagnostic Radiology | DX: M79.662 Pain in left lower leg (principal); M79.89 Other specified soft tissue disorders | CPT/HCPCS: 93971 ==

== ENCOUNTER 2025-05-20 12:56 | Outpatient (AMB) | payer OTHER, SELFPAY ==
--- NOTE | 2025-05-20 13:10 | A.OFFVIS_ITS ---
Vital Signs 05/20/25 13:11 Height 5 ft 7 in Weight 258 lb BMI 40.4 Intake Visit Reasons: lesion (L) calf Intake Note: Patient presents for an assessment for lesion left calf. Pt c/o; discomfort, no pain, no injury to the area that she can recall. 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 Accompanied by: Self / Same As Patient Allergies No Known Allergies Allergy (Verified 05/20/25 13:16) Medication List - Last Reconciled 05/20/25 by Sander Simpson MD bupropion HCl XL mg PO DAILY clobetasol 0.05% 1 g topical DAILY clonidine HCl 0.1 mg PO BEDTIME dextroamphetamine-amphetamine 10 mg PO dextroamphetamine-amphetamine 10 mg ER PO QAM dextroamphetamine-amphetamine 30 mg ER PO DAILY fluocinolone and shower cap 0.01 % 1 appl topical BEDTIME fluoxetine mg PO DAILY lorazepam mg PO PRN propranolol mg PO 3XD PRN HPI HPI lesion (L) calf: Details: [age] year old female referred for a lump on the left calf. She says she has felt this for about 6 months now. She thinks that this has been increasing in size. She describes a little bit of discomfort. She denies any drainage. [facility] Medical History (Updated 05/20/25 @ 13:32 by Sander Simpson MD) Subcutaneous mass of left lower leg Morbid obesity Surgical History History of back surgery Family History Father HTN (hypertension) High cholesterol Cardiovascular disease Prostate cancer Paternal Grandmother HTN (hypertension) High cholesterol Cardiovascular disease Paternal Grandfather HTN (hypertension) High cholesterol Cardiovascular disease Other FH: mental illness History of back surgery Substance abuse Social History Housing: House Alcohol intake: never Patient Tobacco Use Status: Former Tobacco user Years Smoked: once as a teenager e-Cigarette/Vaping Use: Never Used Second Hand Smoke Exposure: Yes service: No Current occupational status: employed 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 Current occupational exposures/hazards: No Cognitive needs: No Hearing needs: No Vision needs: No Review of Systems Const Denies chills and Denies fever(s) Card Denies chest pain, Denies dyspnea and Denies dyspnea on exertion Resp Denies cough, Denies dyspnea and Denies dyspnea on exertion GI Denies hematochezia and Denies change in bowel habits Denies hematuria Musc Denies back pain and Denies limited range of motion Neuro Denies focal weakness and Denies convulsions Psych Denies depression and Denies mood swings Physical Exam Vital Signs: BMI result Body Mass Index 40.4 Const Other: Morbidly obese General: comfortable and no acute distress Orientation/consciousness: patient oriented x3 Neck Neck: Yes no lymphadenopathy Resp Auscultation: clear to auscultation bilaterally Cardio Rhythm: regular rhythm GI Palpation (GI): Soft to palpation, nontender and no guarding Neuro General: patient oriented x3 Extrem Other: Left calf area with a subcutaneous mass, about 5 mm in size, mobile Assessment & Plan Assessment & Plan (1) Subcutaneous mass of left lower leg: Code(s): R22.42 - Localized swelling, mass and lump, left lower limb Category: Medical Plan: This is probably a lipoma versus a cyst. I explained the technique of excision under local anesthesia. I reviewed the risks including but not limited to bleeding and infections, as well as the benefits and alternatives. She understands and wants to proceed This will be done in the office under local anesthesia on her next visit. Coding Level of Care Code New Pt Level 3 (23691) Diagnoses Subcutaneous mass of left lower leg R22.42
[2025-05-20 13:11] VITALS: BMI 40.4
== END 2025-05-20 13:39 | disposition home or self-care (01) ==
LOC: HO.HGS 12:57
PROVIDERS: PCP Nurse Practitioner Family; Visit Provider Surgery
DX: R22.42 Localized swelling, mass and lump, left lower limb (principal)
CPT/HCPCS: 99203

== ENCOUNTER 2025-06-30 10:16 | Outpatient (REF) | payer OTHER, SELFPAY | END 2025-06-30 10:17 | disposition home or self-care (01) | LOC: HO.LNP 10:16 | PROVIDERS: PCP Nurse Practitioner Family; Visit Provider Surgery | DX: R22.42 Localized swelling, mass and lump, left lower limb (principal) | CPT/HCPCS: 11401; 88305 ==

== ENCOUNTER 2025-06-30 10:16 | Outpatient (AMB) | payer OTHER, SELFPAY ==
--- NOTE | 2025-06-30 10:17 | A.OFFVIS_ITS ---
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 [facility] Medical History (Updated 05/20/25 @ 13:32 by Sander Simpson MD) Subcutaneous mass of left lower leg Morbid obesity Surgical History History of back surgery Family History Father HTN (hypertension) High cholesterol Cardiovascular disease Prostate cancer Paternal Grandmother HTN (hypertension) High cholesterol Cardiovascular disease Paternal Grandfather HTN (hypertension) High cholesterol Cardiovascular disease Other FH: mental illness History of back surgery Substance abuse Social History Housing: House Alcohol intake: never Patient Tobacco Use Status: Former Tobacco user Years Smoked: once as a teenager e-Cigarette/Vaping Use: Never Used Second Hand Smoke Exposure: Yes service: No Current occupational status: employed 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 Current occupational exposures/hazards: No Cognitive needs: No Hearing needs: No Vision needs: No Review of Systems Const Denies chills and Denies fever(s) Card Denies chest pain, Denies dyspnea and Denies dyspnea on exertion Resp Denies cough, Denies dyspnea and Denies dyspnea on exertion GI Denies hematochezia and Denies change in bowel habits Denies hematuria Musc Denies back pain and Denies limited range of motion Neuro Denies focal weakness and Denies convulsions Psych Denies depression and Denies mood swings Physical Exam Const General: comfortable and no acute distress Orientation/consciousness: patient oriented x3 Neck Neck: Yes no lymphadenopathy Resp Auscultation: clear to auscultation bilaterally Cardio Rhythm: regular rhythm GI Palpation (GI): Soft to palpation, nontender and no guarding Neuro General: patient oriented x3 Office Procedures Excision Details: She was in prone position. The area of the subcutaneous nodule on the left posterior calf was prepped and draped. Lidocaine 1% was used for local anesthesia. I made an incision on the skin overlying the palpable mass with a blade 15. This carried down through the full-thickness of the skin and subcutaneous fat. I excised this palpable subcutaneous mass. This measured about 9 mm. This was sent as a specimen. I closed the incision with full-thickness nylon 3-0 simple interrupted sutures. Dressings were applied. She tolerated procedure well. There were no immediate complications. 39860-pwypj/arms/legs 0.6-1cm Procedure code (CPT) selection complete Assessment & Plan Assessment & Plan (1) Subcutaneous mass of left lower leg: Code(s): R22.42 - Localized swelling, mass and lump, left lower limb Category: Medical Plan: Excision was done in the office. She tolerated the procedure well. There were no immediate complications. She we will be seen in the office for removal sutures. Coding Level of Care Code Procedure Only Diagnoses Subcutaneous mass of left lower leg R22.42 CPT Codes Trunk/Arms/Legs - CPT: 38902-ulsxl/arms/legs 0.6-1cm ([id number])
== END 2025-06-30 10:45 | disposition home or self-care (01) ==
LOC: HO.HGS 10:16
PROVIDERS: PCP Nurse Practitioner Family; Visit Provider Surgery
DX: R22.42 Localized swelling, mass and lump, left lower limb (principal)
CPT/HCPCS: 11401

== ENCOUNTER 2025-07-14 10:30 | Outpatient (AMB) | payer OTHER, SELFPAY ==
--- NOTE | 2025-07-14 10:36 | A.OFFVIS_ITS ---
Vital Signs 07/14/25 10:37 Height 5 ft 7 in Weight 248 lb BMI 38.8 Respiration 16 Pulse 80 Intake Visit Reasons: Subq lesion exc/ suture removal Intake Note: Patient is seen in office for follow up visit, post excision of mass left lower leg. 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 Denies any bleeding or drainage. Denies fevers at home. [facility] Medical History Subcutaneous mass of left lower leg Morbid obesity Surgical History History of back surgery Family History Father HTN (hypertension) High cholesterol Cardiovascular disease Prostate cancer Paternal Grandmother HTN (hypertension) High cholesterol Cardiovascular disease Paternal Grandfather HTN (hypertension) High cholesterol Cardiovascular disease Other FH: mental illness History of back surgery Substance abuse Social History Housing: House Alcohol intake: never Patient Tobacco Use Status: Former Tobacco user Years Smoked: once as a teenager e-Cigarette/Vaping Use: Never Used Second Hand Smoke Exposure: Yes service: No Current occupational status: employed 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 Two sutures in place. Moderate scabbing. No fluid collection. Some surrounding erythema. No drainage or bleeding Neuro General: patient oriented x3 Assessment & Plan Assessment & Plan (1) H/O excision of mass: Onset Date: ~07/06/25 Comment: BRAEDEN, Comment: The differential includes an angiolipoma or fibrolipoma with degenerative changes and a hamartoma. Dr Simpson Code(s): Z98.890 - Other specified postprocedural states Category: Medical Plan 39-year-old female s/p excision of mass on posterior left calf on 06/30/[address] Simpson returning to the office for wound check suture removal. She is doing well. Denies any bleeding or drainage from the site. It is mildly tender to palpation. She is denying fevers at home. On exam the area appears to be healing well, there was some moderate scabbing in the centrum of the incision site there was no palpable fluid collection although there was some erythema surrounding the sutures which is likely irritation from the sutures. T here was no warmth or discharge noted. I do not think this is acute infectious processes at this time I removed the sutures in the office without complication. We reviewed the pathology report showing Skin and subcutaneous haphazardly- arranged fibrovascular and adipose tissue with focal fat necrosis and organizing hemorrhage; no malignancy identified. The differential includes an angiolipoma or fibrolipoma with degenerative changes and a hamartoma. She can follow up as needed with any concerns in the future. Coding Level of Care Code Est Pt Level 4 (74414) Diagnoses H/O excision of mass Z98.890
[2025-07-14 10:37] VITALS: PULSE 80; RESP 16; BMI 38.8
== END 2025-07-14 11:04 | disposition home or self-care (01) ==
LOC: HO.HGS 10:30
PROVIDERS: PCP Nurse Practitioner Family
DX: Z98.890 Other specified postprocedural states (principal)
CPT/HCPCS: 99214